=== PATIENT | female | born 1985 | race Caucasian/White ===

== ENCOUNTER 2020-08-20 04:54 | Inpatient (IN) | payer OTHER ==
[~2020-08-20] VITALS: Ht 160 cm; Wt 59.0 kg
[2020-08-20] MEDS ORDERED: PRENATABS RX T1 EACH PO (06:03)
[2020-08-20 06:48] LABS: HEMOGLOBIN 9.7 gm/dl (12.3-15.3); RED BLOOD COUNT 4.42 M/UL (4.00-5.10); WHITE BLOOD COUNT 11.5 K/UL (4.5-11.0)
[2020-08-21 05:35] LABS: HEMOGLOBIN 7.4 gm/dl (12.3-15.3)
[2020-08-22] MEDS ORDERED: IBUPROFEN600 MG PO (10:25)
[2020-08-22] MEDS ORDERED: HYDROCODON-ACE1 EAC6 PO (10:25)
[2020-08-22] MEDS ORDERED: COLACE 100MG C100 MG PO (10:25)
== END 2020-08-22 13:52 | disposition home or self-care (01) | DRG 787 ==
LOC: GENOP 04:54 → OB 06:52
PROVIDERS: ADMIT Obstetrics & Gynecology
PROC: 3E0234Z Introduction of Serum, Toxoid and Vaccine into Muscle, Percutaneous Approach (ICD-10-PCS; 2020-08-20)
PROC: 10D00Z1 Extraction of Products of Conception, Low, Open Approach (ICD-10-PCS; principal; 2020-08-20 07:44)
DX: O32.1XX0 Maternal care for breech presentation, not applicable or unspecified (principal); O98.82 Other maternal infectious and parasitic diseases complicating childbirth; Z3A.37 37 weeks gestation of pregnancy; Z37.0 Single live birth; O99.02 Anemia complicating childbirth; D64.89 Other specified anemias; D56.3 Thalassemia minor; Z20.822 Contact with and (suspected) exposure to COVID-19; Z23 Encounter for immunization
CPT/HCPCS: 36415; 81001; 82800; 83518; 85014; 85018; 85025; 90715; C9113; J0690; J1885; J2274; J2405; J2590; J3010; J7120; U0002